=== PATIENT | female | born 1995 | race Caucasian/White ===

== ENCOUNTER 2018-05-24 10:02 | Emergency (ER) | payer SELFPAY ==
[~2018-05-24] VITALS: Ht 160 cm; Wt 49.0 kg
[2018-05-24 11:49] VITALS: BP 118/55
== END 2018-05-24 12:02 | disposition home or self-care (01) ==
LOC: ER 10:02
DX: L60.0 Ingrowing nail (principal); Z88.0 Allergy status to penicillin
CPT/HCPCS: 11730; 99283; Z7610